=== PATIENT | male | born 2000 | race Caucasian/White ===

== ENCOUNTER 2021-11-05 14:17 | Outpatient (REF) | payer BC, SELFPAY ==
--- NOTE | ~2021-11-05 | XR_ITS ---
EXAMINATION: XR FOOT, RIGHT CLINICAL INFORMATION: Right foot injury. COMPARISON: None TECHNIQUE: AP, lateral, and oblique views of the right foot. FINDINGS: There is no acute fracture or dislocation. Alignment is anatomic. Small density in the soft tissues of the fourth digit seen adjacent to the head of the proximal phalanx. This could be a calcification. The soft tissues are otherwise unremarkable. XR/XR foot RT min 3V IMPRESSION: No fracture seen. Small density in the soft tissues near the fourth digit proximal phalanx head could be a soft tissue calcification, although cannot exclude foreign body.
== END 2021-11-05 14:18 | disposition home or self-care (01) ==
LOC: HO.XRAY 14:17
PROVIDERS: Visit Provider Physician Assistant
DX: S99.921A Unspecified injury of right foot, initial encounter (principal); X58.XXXA Exposure to other specified factors, initial encounter; Y93.9 Activity, unspecified; Y92.9 Unspecified place or not applicable; Y99.8 Other external cause status
CPT/HCPCS: 73630